=== PATIENT | male | born 1945 | race Caucasian/White ===

== ENCOUNTER → 2017-09-07 | Outpatient (CLI) | payer MEDICARE, OTHER ==
[~2017-09-07] MED LIST: ADVIL200 MG PO; ALLEGRA 180MG180 MG PO; ASPIRIN 32325 MG/TAB PO; COMMIT PO; DOXYCYCLINE 10100 MG PO; FEROSUL325 MG PO; FLONASE NASAL S16 GM NS; HYTRIN5 MG PO; LISINOPRIL20 MG PO; LOPID 600M600 MG/TAB PO; LOPID600 MG PO; METAMUCIL1 WAF PO; MOTRIN800 MG PO; NEXIUM 20MG CAP20 MG PO; NEXIUM 40MG40 MG PO; NEXIUM PO; PLAVIX 75MG TAB75 MG PO; PLETAL 100MG T100 MG PO; PLETAL100 MG PO; SALINE NASAL RINSE; TERAZOSIN5 MG PO; VYTORIN PO; ZESTRIL 20MG TA20 MG PO; [UNRECOGNIZED DRUG - OTHER] PO; hytrin PO
== END ==
LOC: COL.RAD 12:53
DX: N28.89 Other specified disorders of kidney and ureter (principal); I25.10 Atherosclerotic heart disease of native coronary artery without angina pectoris; I70.0 Atherosclerosis of aorta; Z95.828 Presence of other vascular implants and grafts; M47.815 Spondylosis without myelopathy or radiculopathy, thoracolumbar region; N32.89 Other specified disorders of bladder

== ENCOUNTER → 2021-01-14 | Outpatient (CLI) | payer MEDICARE, OTHER | LOC: COL.RAD 12:00 | DX: M19.011 Primary osteoarthritis, right shoulder (principal) ==